=== PATIENT | female | born 1945 | race American Indian/Alaskan Native ===

== ENCOUNTER 2017-10-26 11:08 | Emergency (ER) | payer OTHER ==
[2017-10-26 11:23] VITALS: TEMP 97.9; O2SAT 97
[2017-10-26 12:22] LABS: BASO % 0.6 % (0.0-2.0); EOS # 0.1 K/uL (0.0-0.7); EOS % 0.9 % (0.0-4.0); HEMOGLOBIN 12.7 g/dL (11.0-16.0); LYMPH # 1.7 K/uL (1.0-4.3); MEAN CORPUSCULAR HGB CONC 34.4 g/dL (33.0-37.0); MEAN PLATELET VOLUME 8.5 fL (7.2-11.7); MONO # 0.7 K/uL (0.0-0.8); NEUT # 3.6 K/uL (1.8-7.0); NEUT % 59.5 % (50.0-75.0); RBC 3.96 Mil/uL (3.80-5.20); RED CELL DISTRIBUTION WIDTH 13.6 % (11.5-14.5)
[2017-10-26 12:56] LABS: ALB/GLOB RATIO 1.1 (1.0-2.1); ALBUMIN 3.7 g/dL (3.5-5.0); ALT/SGPT 38 U/L (9-52); AST/SGOT 29 U/L (14-36); BLOOD UREA NITROGEN 29 mg/dL (7-17); GFR AFRICAN-AMERICAN 44; GFR NON-AFRICAN AMERICAN 37
--- NOTE | 2017-10-26 13:03 | CT ---
PROCEDURE: CT HEAD WITHOUT CONTRAST. HISTORY: R/O Bleed COMPARISON: None available. TECHNIQUE: Axial computed tomography images were obtained through the head/brain without intravenous contrast. Radiation dose: Total exam DLP = 857.70 mGy-cm. This CT exam was performed using one or more of the following dose reduction techniques: Automated exposure control, adjustment of the mA and/or kV according to patient size, and/or use of iterative reconstruction technique. FINDINGS: Examination limited by streak artifact. HEMORRHAGE: No intracranial hemorrhage. BRAIN: Diffuse atrophy with prominence of the ventricles and sulci noted. No mass effect or edema. Intracranial atherosclerosis. Moderate scattered Periventricular and subcortical white matter hypodensities, which are nonspecific, but often seen with chronic microvascular ischemic disease. Please note that MRI with diffusion imaging is more sensitive in the detection of acute ischemic event. VENTRICLES: No hydrocephalus. CALVARIUM: Unremarkable. PARANASAL SINUSES: Unremarkable as visualized. No significant inflammatory changes. MASTOID AIR CELLS: Unremarkable as visualized. No inflammatory changes. OTHER FINDINGS: None. IMPRESSION: Limited study. Moderate nonspecific white matter changes. Generalized atrophy.
[2017-10-26 13:10] LABS: BARBITURATES, UR NEGATIVE (NEGATIVE); BENZODIAZEPINES, UR NEGATIVE (NEGATIVE); PHENCYCLIDINE, UR NEGATIVE (NEGATIVE)
[2017-10-26 13:26] VITALS: BP 131/71; PULSE 63; RESP 16
[2017-10-26 13:34] LABS: OPIATES, UR POSITIVE (NEGATIVE)
--- NOTE | 2017-10-26 14:01 | C.PDOC ---
History Of Present Illness 72 year old female brought [facility] ED [facility] for altered mental status. Pt is responsive to verbal and tactile stimulus. As per EMS, patient possibly had an unwitnessed seizure activity. Limited history at this time. Time Seen by Provider: 10/26/17 11:18 Chief Complaint (Nursing): Medical Clearance History Per: EMS History/Exam Limitations: no limitations Onset/Duration Of Symptoms: Unknown Current Symptoms Are (Timing): Still Present Recent travel outside of the [place]: No Additional History Per: EMS Past Medical History Reviewed: Historical Data, Nursing Documentation, Vital Signs Vital Signs: Last Vital Signs Temp 97.9 F 10/26/17 11:21 Pulse 63 10/26/17 13:25 Resp 16 10/26/17 13:25 BP 131/71 10/26/17 13:25 Pulse Ox 97 10/26/17 15:10 Family History: States: Unknown Family Hx - Social History Hx Alcohol Use: Yes Hx Substance Use: Yes Review Of Systems Review Of Systems: ROS cannot be obtained secondary to pt's inabilty to answer questions. Neurological: Positive for: Altered Mental Status Physical Exam - Physical Exam Appears: Non-toxic, No Acute Distress Skin: Normal Color, Warm, Dry Head: Atraumatic, Normacephalic Eye(s): bilateral: EOMI (pinpoint) Nose: Normal Oral Mucosa: Moist Tongue: Normal Appearing, No Bite Lips: Normal Appearing Neck: Supple Chest: Symmetrical Cardiovascular: Rhythm Regular, No Murmur Respiratory: Normal Breath Sounds, No Rales, No Rhonchi, No Wheezing Gastrointestinal/Abdominal: Soft, No Tenderness Extremity: Normal ROM, No Deformity Extremity: Bilateral: Atraumatic, Normal Color And Temperature Neurological/Psych: Other (responsive to verbal and tactile stimuli) ED Course And Treatment - Laboratory Results Result Diagrams: 10/26/17 12:18 10/26/17 12:18 O2 Sat by Pulse Oximetry: 97 (RA) Pulse Ox Interpretation: Normal - CT Scan/US Head CT Other Rad Studies (CT/US): Read By Radiologist, Radiology Report Reviewed CT/US Interpretation: PROCEDURE: CT HEAD WITHOUT CONTRAST. HISTORY: R/O Bleed. COMPARISON: None available. TECHNIQUE: Axial computed tomography images were obtained through the head/brain without intravenous contrast. Radiation dose: Total exam DLP = 857.70 mGy-cm. This CT exam was performed using one or more of the following dose reduction techniques: Automated exposure control, adjustment of the mA and/or kV according to patient size, and/ or use of iterative reconstruction technique. FINDINGS: Examination limited by streak artifact. HEMORRHAGE: No intracranial hemorrhage. BRAIN: Diffuse atrophy with prominence of the ventricles and sulci noted. No mass effect or edema. Intracranial atherosclerosis. Moderate scattered Periventricular and subcortical white matter hypodensities, which are nonspecific, but often seen with chronic microvascular ischemic disease. Please note that MRI with diffusion imaging is more sensitive in the detection of acute ischemic event. VENTRICLES: No hydrocephalus. CALVARIUM: Unremarkable. PARANASAL SINUSES: Unremarkable as visualized. No significant inflammatory changes. MASTOID AIR CELLS: Unremarkable as visualized. No inflammatory changes. OTHER FINDINGS: None. IMPRESSION: Limited study. Moderate nonspecific white matter changes. Generalized atrophy. Medical Decision Making Medical Decision Making: Blood work, head CT ordered and reviewed. 13:55 On re-eval, pt is fully awake, alert, and oriented x3. Pt states that the last thing she remembers is taking two tablets of her daughter's Percocet for arthritis. Pt is being discharged home, and is advised not to take any Percocets unless if it is prescribed to her. Disposition - Disposition Referrals: [facility] [Outside] [facility] [Outside] Disposition: HOME/ ROUTINE Disposition Time: 13:50 Condition: IMPROVED Additional Instructions: Thank you for letting us take care of you today. The emergency medical care you received today was directed at your acute symptoms. If you were prescribed any medication, please fill it and take as directed. It may take several days for your symptoms to resolve. Return to the Emergency Department if your symptoms worsen, do not improve, or if you have any other problems. Please contact your doctor or call one of the physicians/clinics you have been referred to that are listed on the Patient Visit Information form that is included in your discharge packet. Bring any paperwork you were given at discharge with you along with any medications you are taking to your follow up visit. Our treatment cannot replace ongoing medical care by a primary care provider (PCP) outside of the emergency department. Thank you for allowing the [facility] team to be part of your care today. DO NOT TAKE ANY PERCOCET UNLESS IT IS PRESCRIBED TO YOU BY YOUR DOCTOR. Follow up with your doctor or the clinic in 3-5 days for re-evaluation and further management. Prescriptions: Ibuprofen [Motrin] 400 mg PO Q6 PRN #20 tab PRN Reason: Pain, Moderate (4-7) Forms: [facility] (Kyrgyz) - Clinical Impression Clinical Impression: Opiate use - Scribe Statement The provider has reviewed the documentation as recorded by the Scribe Junior Kumar All medical record entries made by the Scribe were at my direction and personally dictated by me. I have reviewed the chart and agree that the record accurately reflects my personal performance of the history, physical exam, medical decision making, and the department course for this patient. I have also personally directed, reviewed, and agree with the discharge instructions and disposition.
--- NOTE | 2017-10-26 14:08 | C.PDOC ---
Time Seen by Provider: 10/26/17 11:18 Chief Complaint (Nursing): Medical Clearance Past Medical History Vital Signs: Last Vital Signs Temp 97.9 F 10/26/17 11:21 Pulse 63 10/26/17 13:25 Resp 16 10/26/17 13:25 BP 131/71 10/26/17 13:25 Pulse Ox 97 10/26/17 13:25 - Social History Hx Alcohol Use: Yes Hx Substance Use: Yes ED Course And Treatment - Laboratory Results Result Diagrams: 10/26/17 12:18 10/26/17 12:18 O2 Sat by Pulse Oximetry: 97 Disposition - Disposition
== END 2017-10-26 14:21 | disposition home or self-care (01) ==
LOC: C.ER 11:08
DX: F11.90 Opioid use, unspecified, uncomplicated (principal)
CPT/HCPCS: 70450; 80053; 82948; 83605; 85025; 99283; G0480

== ENCOUNTER 2017-10-31 20:28 | Emergency (ER) | payer OTHER ==
[2017-10-31 23:13] LABS: BASO % 0.4 % (0.0-2.0); EOS # 0.1 K/uL (0.0-0.7); EOS % 0.9 % (0.0-4.0); HEMOGLOBIN 12.7 g/dL (11.0-16.0); LYMPH # 2.9 K/uL (1.0-4.3); LYMPH % 33.1 % (20.0-40.0); MEAN CELL VOLUME 92.9 fL (81.0-99.0); MEAN CORPUSCULAR HEMOGLOBIN 31.3 pg (27.0-31.0); MEAN CORPUSCULAR HGB CONC 33.6 g/dL (33.0-37.0); MONO # 0.8 K/uL (0.0-0.8); MONO % 8.7 % (0.0-10.0); NEUT % 56.9 % (50.0-75.0); RBC 4.05 Mil/uL (3.80-5.20); RED CELL DISTRIBUTION WIDTH 13.7 % (11.5-14.5); WHITE BLOOD COUNT 8.9 K/uL (4.8-10.8)
[2017-10-31 23:27] LABS: ALB/GLOB RATIO 1.2 (1.0-2.1); ALBUMIN 4.1 g/dL (3.5-5.0); CALCIUM 8.6 mg/dl (8.6-10.4)
[2017-10-31 23:39] LABS: TROPONIN I 0.1 ng/mL (0.00-0.120)
[2017-11-01 00:44] VITALS: O2SAT 95
--- NOTE | 2017-11-01 01:29 | C.PDOC ---
History Of Present Illness 72 year old female with PMHx of HTN presents to the ED brought in by EMS for possible cocaine use. Patient is a poor historian, when questioned in the ED she states she does not know why she was brought into the ED, denies drug use. Patient reports being a smoker for the past 35 years. No complaint of chest pain , sob, fever, chills,nausea ,vomit. Chief Complaint (Nursing): Substance Abuse History Per: Patient, EMS History/Exam Limitations: no limitations Onset/Duration Of Symptoms: Hrs Current Symptoms Are (Timing): Gone Suicide/Self Injury Attempted (Context): None Modifying Factor(s): None, Cocaine (possible) Severity: None Pain Scale Rating Of: 0 Associated Symptoms: denies: Depression, Suicidal Thoughts, Suicidal Plan Involuntary Hold By: None Recent travel outside of the [place]: No Additional History Per: Patient, EMS Past Medical History Reviewed: Historical Data, Nursing Documentation, Vital Signs Vital Signs: Last Vital Signs Temp 97.9 F 11/01/17 04:11 Pulse 80 11/01/17 04:11 Resp 18 11/01/17 04:11 BP 167/78 H 11/01/17 04:11 Pulse Ox 95 11/01/17 04:11 - Medical History PMH: No Chronic Diseases Surgical History: No Surg Hx Family History: States: Unknown Family Hx - Social History Hx Alcohol Use: Yes Hx Substance Use: Yes Review Of Systems Constitutional: Negative for: Fever, Chills Eyes: Negative for: Pain ENT: Negative for: Ear Pain, Nose Congestion Cardiovascular: Negative for: Chest Pain, Palpitations, Edema, Light Headedness Respiratory: Negative for: Cough, Shortness of Breath, SOB with Excertion, Pleuritic Pain, Sputum Gastrointestinal: Negative for: Nausea, Vomiting, Abdominal Pain, Diarrhea, Constipation, Melena, Hematochezia Genitourinary: Negative for: Dysuria Musculoskeletal: Negative for: Neck Pain Skin: Negative for: Rash Neurological: Negative for: Weakness, Numbness Psych: Negative for: Anxiety Physical Exam - Physical Exam Appears: Non-toxic, No Acute Distress Skin: Normal Color, Warm, Dry Head: Atraumatic, Normacephalic Eye(s): bilateral: Normal Inspection Ear(s): Bilateral: Normal Nose: No Discharge Oral Mucosa: Moist Lips: Normal Appearing Teeth: Normal Dentition Gingiva: Normal Appearing Neck: Normal ROM, Supple Chest: Symmetrical Cardiovascular: Rhythm Regular, No Murmur Respiratory: Normal Breath Sounds, No Rales, No Rhonchi, No Wheezing Gastrointestinal/Abdominal: Soft, No Tenderness Extremity: Normal ROM, No Pedal Edema, No Calf Tenderness, No Deformity, No Swelling Neurological/Psych: Oriented x3, Normal Speech, Normal Cognition Gait: Steady ED Course And Treatment - Laboratory Results Result Diagrams: 10/31/17 23:10 10/31/17 23:10 ECG: Interpreted By Me, Viewed By Me ECG Rhythm: Sinus Rhythm Interpretation Of ECG: NSR 74 VA 180 Qt 178 Qtc 178 Rate From EC O2 Sat by Pulse Oximetry: 95 (On RA) Pulse Ox Interpretation: Normal - Radiology CXR: Interpreted by Me, Viewed By Me CXR Interpretation: Yes: Other (right haziness right lower lobe). No: Infiltrates, Cardiomegaly, Pnemothorax Medical Decision Making Medical Decision Making: Plan: * CXR * neg * EKG * NSR 74 VA 180 Qt 178 Qtc 178 * Labs * UA * * labs unremarkable * Disposition Counseled Patient/Family Regarding: Diagnosis - Disposition Referrals: [facility] [place] [facility] [Outside] [facility] [place] [Outside] Disposition: HOME/ ROUTINE Disposition Time: 01:45 Condition: STABLE Additional Instructions: return if symptoms return or worsen Instructions: Altered Mental Status (ED), Altered Mental Status (GEN) Forms: [employer] (Sinhala) - POA Present On Arrival: Cath Associated UTI Core Measure Indicators: Chest Pain - Clinical Impression Clinical Impression: Worried well - Scribe Statement The provider has reviewed the documentation as recorded by the Scribe Paulino Britt All medical record entries made by the Scribe were at my direction and personally dictated by me. I have reviewed the chart and agree that the record accurately reflects my personal performance of the history, physical exam, medical decision making, and the department course for this patient. I have also personally directed, reviewed, and agree with the discharge instructions and disposition.
[2017-11-01 04:14] VITALS: BP 167/78; PULSE 80; RESP 18; TEMP 97.9
[2017-11-01 05:16] LABS: GRANULAR CAST 3 /lpf (0-1); SQUAMOUS EPITHIAL 7 /hpf (0-5); URINE BACTERIA RARE (<OCC); URINE BILIRUBIN NEGATIVE (NEGATIVE); URINE BLOOD 3+ (NEGATIVE); URINE CLARITY Hazy (Clear); URINE COLOR Yellow (YELLOW); URINE GLUCOSE (UA) NORMAL (Normal); URINE LEUKOCYTE ESTERASE 3+ Leu/uL (Negative); URINE NITRATE NEGATIVE (NEGATIVE); URINE PROTEIN 1+ mg/dL (NEGATIVE); URINE UROBILINOGEN NORMAL mg/dL (0.2-1.0)
[2017-11-01 05:20] LABS: BARBITURATES, UR NEGATIVE (NEGATIVE); BENZODIAZEPINES, UR NEGATIVE (NEGATIVE); PHENCYCLIDINE, UR NEGATIVE (NEGATIVE)
[2017-11-01 05:24] LABS: OPIATES, UR POSITIVE (NEGATIVE)
--- NOTE | 2017-11-01 08:45 | RAD ---
HISTORY: SOB COMPARISON: No prior. TECHNIQUE: Chest PA and lateral FINDINGS: LUNGS: No consolidation. The right infrahilar bronchovascular marking/appearance here is top-normal frontal view. Bilateral hyperaeration - COPD inferred ; bilateral mild interstitial lung marking and bronchovascular marking prominence - chronicity unknown PLEURA: No significant pleural effusion identified. No pneumothorax apparent. CARDIOVASCULAR: Minimal cardiomegaly. Mild right hilar soft tissue prominence -chronicity unknown OSSEOUS STRUCTURES: No significant abnormalities. VISUALIZED UPPER ABDOMEN: Normal. OTHER FINDINGS: None. IMPRESSION: Overall bronchovascular markings and interstitial markings - diffusely increased -chronicity unknown. The right infrahilar bronchovascular markings may be minimally more focally prominent - no air bronchograms to confirm - consolidative infiltrate here . Mild right hilar soft tissue prominence -chronicity unknown Recommend comparison with outside studies. . If no prior studies exist,consider elective CT chest imaging
--- NOTE | 2017-11-02 23:36 | CARD ---
APPROVED REPORT EKG Measurement Heart [id number] <Conclusion> Normal sinus rhythm Possible Left atrial enlargement Nonspecific ST and T wave abnormality Prolonged QT Abnormal ECG
== END 2017-11-01 05:42 | disposition home or self-care (01) ==
LOC: C.ER 20:28
DX: Z71.1 Person with feared health complaint in whom no diagnosis is made (principal); I10 Essential (primary) hypertension
CPT/HCPCS: 36415; 71046; 80053; 81001; 83880; 84484; 85025; 93005; 99285; G0480

== ENCOUNTER 2017-11-05 12:34 | Inpatient (IN) | payer OTHER, MEDICAID ==
--- NOTE | 2017-11-05 13:00 | C.PDOC ---
History Of Present Illness 72 y/o female presents to ED requesting heroin detox. Patient states she has been snorting heroin daily since 1973 and states last use was yesterday. Patient denies withdrawal symptoms, h/o seizures, sob, chest pain, abdominal pain, nausea or any other complaints at this time. Denies PMH or use of chronic medication. Time Seen by Provider: 11/05/17 12:50 Chief Complaint (Nursing): Substance Abuse History Per: Patient History/Exam Limitations: no limitations Onset/Duration Of Symptoms: Days Current Symptoms Are (Timing): Still Present Suicide/Self Injury Attempted (Context): None Past Medical History Reviewed: Historical Data, Nursing Documentation, Vital Signs Vital Signs: Last Vital Signs Temp 98.5 F 11/05/17 14:18 Pulse 77 11/05/17 14:18 Resp 16 11/05/17 14:18 BP 146/69 11/05/17 14:18 Pulse Ox 96 11/05/17 15:53 - Medical History PMH: No Chronic Diseases Surgical History: No Surg Hx Family History: States: No Known Family Hx - Social History Hx Alcohol Use: Yes Hx Substance Use: Yes - Immunization History Hx Tetanus Toxoid Vaccination: No Hx Influenza Vaccination: No Hx Pneumococcal Vaccination: No Review Of Systems Constitutional: Negative for: Fever, Chills Cardiovascular: Negative for: Chest Pain Respiratory: Negative for: Shortness of Breath Gastrointestinal: Negative for: Nausea, Vomiting Skin: Negative for: Rash Neurological: Negative for: Weakness, Numbness Physical Exam - Physical Exam Appears: Non-toxic, No Acute Distress Skin: Normal Color, Warm, Dry, No Rash Head: Atraumatic, Normacephalic Eye(s): bilateral: Normal Inspection, EOMI Nose: Normal Oral Mucosa: Moist Neck: Normal ROM, Supple Chest: Symmetrical Cardiovascular: Rhythm Regular Respiratory: Normal Breath Sounds, No Accessory Muscle Use, No Rales, No Rhonchi , No Wheezing Gastrointestinal/Abdominal: Soft, No Tenderness, No Guarding, No Rebound Back: No CVA Tenderness Extremity: Normal ROM, Capillary Refill (<2 seconds) Neurological/Psych: Oriented x3 Gait: Steady ED Course And Treatment - Laboratory Results Result Diagrams: 11/05/17 13:25 11/05/17 13:25 O2 Sat by Pulse Oximetry: 96 (RA) Pulse Ox Interpretation: Normal Progress Note: Blood work and UA,. Patient is prescreened for detox,. Renal insifficiency noted, creatinine has imporved since last visit. Appears chronic. Discussed with pt need for PMD/nephromology outpt and strict follow up . Pt verbalizes understanding. Case discussed with Dr Mccormack, agreed upon medical clearance. Case discussed with social insurance analyst who discussed with Dr. Myers who agreed for patient to be admited under his service for opioid dependence Disposition - Disposition Disposition: HOSPITALIZED Disposition Time: 15:51 Condition: STABLE - Clinical Impression Clinical Impression: Opioid dependence, Chronic renal insufficiency - PA / SURVEYOR HELPER ROD / Resident Statement MD/DO has reviewed & agrees with the documentation as recorded. - Scribe Statement The provider has reviewed the documentation as recorded by the Akbaribedy Akbar All medical record entries made by the Mic were at my direction and personally dictated by me. I have reviewed the chart and agree that the record accurately reflects my personal performance of the history, physical exam, medical decision making, and the department course for this patient. I have also personally directed, reviewed, and agree with the discharge instructions and disposition.
[2017-11-05 13:30] LABS: SQUAMOUS EPITHIAL 1 /hpf (0-5); URINE BILIRUBIN NEGATIVE (NEGATIVE); URINE BLOOD 1+ (NEGATIVE); URINE CLARITY Clear (Clear); URINE COLOR Yellow (YELLOW); URINE GLUCOSE (UA) NORMAL (Normal); URINE LEUKOCYTE ESTERASE 1+ Leu/uL (Negative); URINE NITRATE NEGATIVE (NEGATIVE); URINE PROTEIN 1+ mg/dL (NEGATIVE); URINE UROBILINOGEN NORMAL mg/dL (0.2-1.0)
[2017-11-05 13:39] LABS: BASO % 0.7 % (0.0-2.0); EOS # 0.1 K/uL (0.0-0.7); EOS % 1.7 % (0.0-4.0); HEMOGLOBIN 11.5 g/dL (11.0-16.0); LYMPH # 1.8 K/uL (1.0-4.3); LYMPH % 25.7 % (20.0-40.0); MEAN CELL VOLUME 93.3 fL (81.0-99.0); MEAN CORPUSCULAR HEMOGLOBIN 31.4 pg (27.0-31.0); MEAN CORPUSCULAR HGB CONC 33.6 g/dL (33.0-37.0); MEAN PLATELET VOLUME 8.2 fL (7.2-11.7); MONO # 0.7 K/uL (0.0-0.8); MONO % 9.5 % (0.0-10.0); NEUT # 4.3 K/uL (1.8-7.0); NEUT % 62.4 % (50.0-75.0); RBC 3.68 Mil/uL (3.80-5.20); RED CELL DISTRIBUTION WIDTH 13.8 % (11.5-14.5); WHITE BLOOD COUNT 6.9 K/uL (4.8-10.8)
[2017-11-05 13:51] LABS: ALB/GLOB RATIO 1.1 (1.0-2.1); ALBUMIN 3.5 g/dL (3.5-5.0); ALT/SGPT 31 U/L (9-52); AST/SGOT 32 U/L (14-36); BLOOD UREA NITROGEN 39 mg/dL (7-17); CALCIUM 8.1 mg/dl (8.6-10.4); GFR AFRICAN-AMERICAN 41; GFR NON-AFRICAN AMERICAN 34
[2017-11-05 13:52] LABS: BARBITURATES, UR NEGATIVE (NEGATIVE); BENZODIAZEPINES, UR NEGATIVE (NEGATIVE); PHENCYCLIDINE, UR NEGATIVE (NEGATIVE)
[2017-11-05 15:16] LABS: OPIATES, UR POSITIVE (NEGATIVE)
[2017-11-05] MEDS ORDERED: Aluminum Hydroxide/Magnesium Hydroxide Susp (30 mL) PO PRN (17:06)
--- NOTE | 2017-11-05 20:13 | PCM.BM ---
<Ludivina Vela - Last Filed: 11/05/17 20:12> Treatment Plan Problems - Problems identified on initial assessmt Potential for opiate withdrawal Date Initiated: 11/05/17 Time Initiated: 20:13 Assessment reference: NA Status: Active Priority: 1 Treatment assets and liabiliti Patient Assests: cooperative, ADL independent, negotiates basic needs Patient Liabilities: substance abuse, medical problems (HTN), other (Homeless) - Milieu Protocol Maintain good personal hygiene: daily Encourage regular showers, daily Remind patient to perform daily oral care, daily Assist patient to perform ADL's Conduct patient checks and document Observation sheet: Q15 minutes Maintain personal safety: every shift Educate patient to report safety concerns to staff, every shift Monitor environment for contraband/sharps Medication safety: Monitor for expected outcome, potential side effects: every shift, Assess barriers to learning: every shift, Assess readiness for medication education: every shift <Dorinda Mccracken - Last Filed: 11/06/17 12:30> Family Contact Family involvement: No known Family/SO - Goals for Treatment Patient goals for treatment: Complete detox and return to fdc. Discharge/Continuing Care - Education Needs Education Needs: Patient Medication, Patient Diagnosis/Disease Process, Patient Coping Skills, Patient Anger Management skills, Patient Placement options, Patient Community resources - Discharge Discharge Criteria: No longer exhibiting s/s of withdrawal, Reduction of target symptoms Discharge to:: Penitentiary - Treatment Team Participation Patient/Family/SO Statement: 11/06/17 12:30 "[facility] back [facility] Discussed with Family/SO: No Was Patient/Family/SO present at Treatment Team Meeting: Yes
--- NOTE | 2017-11-06 13:19 | PCM.PSYCH ---
Initial Psychiatric Evaluation - Initial Psychiatric Evaluation Type of Admission: Voluntary Legal Status: Capacity Chief Complaint (in patient's own words): "I have to stop heroin" History of Present Illness and Precipitating Events: The pt is seen, chart reviewed and case discussed. She is a 72 y/o AAF, twice-, has 3 children but one is alive and has "many" grandchildren. She is not in touch and denies having any support system whatsoever. She lives in a custodial, which mandated that she come to detox otherwise lose her bed. She admits to using "one or two" bags of heroin by snorting for "many years." She describes wdw sxs but she is not experiencing much now. Denies all other drugs. No previous treatment but agrees that she should stop to avoid eviction Past psych hx: Denies Family psych hx: Denies Medical hx: Asthma, palpitations Current Medications: Active Medications Generic Name Dose Route Start Last Admin Trade Name Freq PRN Reason Stop Dose Admin Al Hydrox/Mg Hydrox/Simethicone 30 ml 11/05/17 17:06 Maalox 30 Ml PO TID PRN Indigestion / Heartburn Clonidine HCl 0.1 mg 11/05/17 17:06 Catapres PO Q8 PRN COWS Score More or Equal to 5 Hydroxyzine HCl 25 mg 11/05/17 17:06 Atarax PO Q6 PRN Agitation Loperamide HCl 2 mg 11/05/17 17:06 Imodium PO Q8 PRN Diarrhea Ondansetron HCl 4 mg 11/05/17 17:06 Zofran Tab PO Q8 PRN Nausea/Vomiting Pseudoephedrine HCl 60 mg 11/05/17 17:06 Sudafed Tab PO QID PRN Nasal/Sinus Congestion Past Psychiatric History - Past Psychiatric History Previous Treatment History: None Pertinent Medical Hx (Current Medical&Sleep Prob, Allergies): Allergies Allergy/AdvReac Type Severity Reaction Status Date / Time No Known Allergies Allergy Unverified 11/05/17 12:47 Ibuprofen [Motrin] 400 mg PO Q6 PRN #20 tab 10/26/17 Mv,Min10/Folic Acid/D3/Ala/Lut [Strovite One Caplet] 1 tab PO DAILY 10/26/17 Promethazine DM [Phenergan DM Syrup] 1 tsp PO QID 10/26/17 Review of Systems - Neurological Neurological: UNREMARKABLE - Psychiatric Psychiatric: Abnormal Sleep Pattern, Anxiety, Change in Appetite, Difficulty Concentrating. absent: Hallucinations, Homicidal Ideation, Suicidal Ideation Mental Status Examination - Personal Presentation Personal Presentation: Looks stated age - Affect Affect: Constricted - Motor Activity Motor Activity: Calm - Reliability in Providing Information Reliability in Providing Information: Good - Speech Speech: Organized - Mood Mood: Anxious - Formal Thought Process Formal Thought Process: No Impairment - Cognitive Functions Orientation: Person, Place, Situation, Time Sensorium: Alert Estimate of Intelligence: Average Judgement: Intact, as evidence by: Insight regarding need for hospitalization Memory: Recent intact, as evidence by: Ability to recall events of the day, Remote intact, as evidenced by: Abilit to recall sig. life events - Risk Risk: Withdrawal, Diminished functioning - Strength & Assets Inventory Strength & Assets Inventory: Cooperative - Limitations Limitations: Living alone DSM 5 DX - DSM 5 DSM 5 Diagnosis: Opioid use d/o - mild - Recommended/Plan of Treatment Treatment Recommendations and Plan of Treatment: Subutex detox when she withdraws As needed medications Attend groups and activities Supportive therapy and psychoeducation [place] for abstinence CBT for relapse prevention Refer to rehab or IOP Attend self-help groups as well 33 min Projected ELOS: 2-3 days Prognosis: good with treatment
--- NOTE | 2017-11-07 08:48 | PCM.PYCHDC ---
Mental Status Examination - Mental Status Examination Orientation: Person Discharge Summary - Discharge Note Consultations:: List each consultation separately and include: 1. Reason for request. 2. Findings. 3. Follow-up Summary of Hospital Course include:: 1. Description of specific treatment plan utilized for patients during their course of treatmen. 2. Summarize the time- course for resolution of acute symptoms and/or regressed behaviors. 3. Describe issues identified and worked on during hospitalization. 4. Describe medication utilized. 5. Describe medical problems identified and treated. 6. Reassessment of suicide risk Summary of Hospital Course: The pt is seen, chart reviewed and case discussed. She is a 72 y/o AAF, twice-, has 3 children but one is alive and has "many" grandchildren. She is not in touch and denies having any support system whatsoever. She lives in a fdc, which mandated that she come to detox otherwise lose her bed. She admits to using "one or two" bags of heroin by snorting for "many years." She describes wdw sxs but she is not experiencing much now. Denies all other drugs. No previous treatment but agrees that she should stop to avoid eviction Past psych hx: Denies Family psych hx: Denies Medical hx: Asthma, palpitations - Final Diagnosis (DSM 5) Condition upon Discharge: STABLE Disposition: HOME/ ROUTINE Follow-up Treatment Plan: Subutex detox when she withdraws As needed medications Attend groups and activities Supportive therapy and psychoeducation [place] for abstinence CBT for relapse prevention Refer to rehab or IOP Attend self-help groups as well 33 min
[2017-11-07 10:20] VITALS: BP 157/73; PULSE 65; RESP 20; TEMP 98; O2SAT 98
--- NOTE | 2017-11-08 01:21 | CARD ---
APPROVED REPORT EKG Measurement Heart [id number] <Conclusion> Normal sinus rhythm Possible Left atrial enlargement Left ventricular hypertrophy with repolarization abnormality Abnormal ECG
== END 2017-11-07 10:45 | disposition home or self-care (01) | DRG 895 ==
LOC: C.ER 12:34 → C.7D 15:41
PROVIDERS: ADMIT Psychiatry & Neurology Psychiatry; ATTEND Psychiatry & Neurology Psychiatry
PROC: HZ52ZZZ Individual Psychotherapy for Substance Abuse Treatment, Cognitive-Behavioral (ICD-10-PCS; principal; 2017-11-05)
PROC: HZ56ZZZ Individual Psychotherapy for Substance Abuse Treatment, Psychoeducation (ICD-10-PCS; 2017-11-05)
PROC: HZ42ZZZ Group Counseling for Substance Abuse Treatment, Cognitive-Behavioral (ICD-10-PCS; 2017-11-05)
PROC: HZ46ZZZ Group Counseling for Substance Abuse Treatment, Psychoeducation (ICD-10-PCS; 2017-11-05)
PROC: HZ59ZZZ Individual Psychotherapy for Substance Abuse Treatment, Supportive (ICD-10-PCS; 2017-11-05)
DX: F11.20 Opioid dependence, uncomplicated (principal); I10 Essential (primary) hypertension; N18.9 Chronic kidney disease, unspecified; Z59.0 Homelessness; R09.81 Nasal congestion